=== PATIENT | female | born 1995 | race Hispanic/Latino ===

== ENCOUNTER 2018-10-13 21:57 | Emergency (ER) | payer OTHER, SELFPAY ==
[2018-10-14 01:13] LABS: Absolute Lymphocytes (CBC) 2.5 K/uL (0.7-4.9); Absolute Monocytes 0.7 K/uL (0.1-1.3); Absolute Neutrophil 6.6 K/uL (1.8-8.0); Basophils % 0.2 % (0-1.3); Eosinophils % 1.7 % (0-4.4); Hematocrit 44.3 % (36.0-45.0); MPV 8.4 fL (7.6-11.3); Monocytes % 6.7 % (3.3-12.3); RBC Red Blood Cell Count 5.26 M/uL (3.86-4.86)
[2018-10-14 01:26] LABS: ALT/SGPT 37 U/L (12-78); AST/SGOT 19 U/L (15-37); Albumin 3.8 g/dL (3.4-5.0); Alkaline Phosphatase 76 U/L (45-117); BUN Blood Urea Nitrogen 9 mg/dL (7-18); Bicarbonate 27 mmol/L (21-32); Bilirubin Direct < 0.1 mg/dL (0-0.2); Bilirubin Total 0.2 mg/dL (0.2-1.0); Glucose Level 111 mg/dL (74-106); Lipase 840 U/L (73-393); Potassium 3.5 mmol/L (3.5-5.1); Protein, Total 8.5 g/dL (6.4-8.2); Sodium Level 139 mmol/L (136-145)
[2018-10-14 01:34] LABS: Urine Blood NEGATIVE (NEG); Urine Glucose NEGATIVE (NEG); Urine Protein NEGATIVE (NEG); Urine Specific Gravity 1.025 (1.005-1.030)
--- NOTE | 2018-10-14 03:22 | ER ---
Nurse's Notes [facility] Name: Jennifer Erickson Age: 23 yrs Sex: Female : 1995 Arrival Date: 10/13/2018 Time: 21:59 Bed 19 Private MD: Diagnosis: Unspecified abdominal pain Presentation: 10/13 22:26 Presenting complaint: Patient states: i have history of gall stones for 5 months, now i mg2 have LUQ pain radiating to the back and RUQ. i have also nausea for 3 days now. Transition of care: patient was not received from another setting of care. Onset of symptoms was October 11, 2018. Risk Assessment: Do you want to hurt yourself or someone else? Patient reports no desire to harm self or others. Initial Sepsis Screen: Does the patient meet any 2 criteria? No. Patient's initial sepsis screen is negative. Does the patient have a suspected source of infection? No. Patient's initial sepsis screen is negative. Care prior to arrival: None. 22:26 Method Of Arrival: Ambulatory mg2 22:26 Acuity: BOO 3 mg2 TECHNICAL SUPPORT ASSISTANT: 22:28 LMP 08/2018 mg2 Historical: - Allergies: 22:29 No Known Allergies; mg2 - PMHx: 22:29 None; mg2 - PSHx: 22:29 ; mg2 - Immunization history:: Flu vaccine is not up to date. - Social history:: Smoking status: Patient uses tobacco products, 4 sticks a day, Patient/guardian denies using alcohol, street drugs, IV drugs. - Ebola Screening: : No symptoms or risks identified at this time. Screenin/14 00:45 Abuse screen: Denies threats or abuse. Nutritional screening: No deficits noted. jb4 Tuberculosis screening: No symptoms or risk factors identified. Fall Risk None identified. Assessment: 00:54 General: Appears in no apparent distress. comfortable, Behavior is calm, cooperative, jb4 appropriate for age. Pain: Complains of pain in epigastric area and left upper quadrant Pain does not radiate. Pain currently is 6 out of 10 on a pain scale. Quality of pain is described as crampy. Neuro: Level of Consciousness is awake, alert, obeys commands, Oriented to person, place, time, situation. Cardiovascular: Patient's skin is warm and dry. Respiratory: Airway is patent Respiratory effort is even, unlabored, Respiratory pattern is regular, symmetrical. GI: Bowel sounds present X 4 quads. Abd is soft X 4 quads Abd is non tender in umbilical area, suprapubic area, right upper quadrant, right lower quadrant and left lower quadrant Abdomen is tender to palpation in epigastric area and left upper quadrant Reports upper abdominal pain, nausea. : No signs and/or symptoms were reported regarding the genitourinary system. EENT: No signs and/or symptoms were reported regarding the EENT system. Derm: Skin is intact, Skin is pink, warm \T\ dry. Musculoskeletal: Circulation, motion, and sensation intact. 02:00 Reassessment: Patient appears in no apparent distress at this time. Patient and/or jb4 family updated on plan of care and expected duration. Pain level reassessed. Patient is alert, oriented x 3, equal unlabored respirations, skin warm/dry/pink. 03:00 Reassessment: Patient appears in no apparent distress at this time. Patient and/or jb4 family updated on plan of care and expected duration. Pain level reassessed. Patient is alert, oriented x 3, equal unlabored respirations, skin warm/dry/pink. 03:40 Reassessment: Patient appears in no apparent distress at this time. Patient and/or jb4 family updated on plan of care and expected duration. Pain level reassessed. Patient is alert, oriented x 3, equal unlabored respirations, skin warm/dry/pink. Vital Signs: 10/13 22:28 BP 126 / 86; Pulse 90; Resp 18; Temp 98.6; Pulse Ox 100% on R/A; Weight 108.86 kg; mg2 Height 5 ft. 4 in. (162.56 cm); Pain 11/07; 10/14 00:45 BP 109 / 71; Pulse 80; Resp 16; Pulse Ox 100% on R/A; jb4 02:00 BP 100 / 54; Pulse 69; Resp 16; Pulse Ox 99% on R/A; jb4 03:32 BP 122 / 62; Pulse 85; Resp 16; Pulse Ox 99% on R/A; jb4 10/13 22:28 Body Mass Index 41.20 (108.86 kg, 162.56 cm) mg2 ED Course: 10/13 21:59 Patient arrived in ED. ag3 22:28 Triage completed. mg2 22:30 Arm band placed on. mg2 23:05 Tera Singer NP is PHCP. pm1 23:05 Josue Hernandez MD is Attending Physician. pm1 23:10 Jude Ruelas, RN is Primary Nurse. jb4 10/14 00:45 Patient has correct armband on for positive identification. Bed in low position. Call jb4 light in reach. Side rails up X 1. Pulse ox on. NIBP on. 00:45 No provider procedures requiring assistance completed. Initial lab(s) drawn, by az, jb4 sent to lab. Inserted saline lock: 20 gauge in left forearm, using aseptic technique. Blood collected. 02:29 CT completed. Patient tolerated procedure well. Patient moved to CT via wheelchair. Patient moved back from CT. 02:46 CT Abd/Pelvis - W/Contrast: IV contrast only In Process Unspecified. EDMS 03:32 IV discontinued, intact, bleeding controlled. jb4 Administered Medications: 03:39 Drug: GI Cocktail without - (Maalox Suspension 30 ml, Lidocaine Liquid 2 % 15 jb4 ml) Route: PO; 03:39 Follow up: Response: No adverse reaction jb4 Outcome: 03:21 Discharge ordered by . pm1 03:41 Discharged to home ambulatory. jb4 03:41 Condition: stable 03:41 Discharge instructions given to patient, Instructed on discharge instructions, follow up and referral plans. medication usage, Demonstrated understanding of instructions, follow-up care, medications, Prescriptions given X 1. 03:41 Patient left the ED. jb4 Signatures: Dispatcher [employer] EDOR Izaiah Slater Tera Singer, SWETA PROCUREMENT REPRESENTATIVE pm1 Jude Ruelas, RN RN jb4 Benitez Oro RN RN [facility] Jacy Ramos ag3
--- NOTE | 2018-10-14 03:22 | EDPHYS ---
Physician Documentation [facility] Name: Jennifer Erickson Age: 23 yrs Sex: Female : 1995 Arrival Date: 10/13/2018 Time: 21:59 Bed 19 Private MD: ED Physician Josue Hernandez HPI: 10/14 00:00 This 23 yrs old Female presents to ER via Ambulatory with complaints of pm1 Abdominal Pain. 00:00 The patient presents with abdominal pain in the upper abdomen. Onset: The pm1 symptoms/episode began/occurred 3 day(s) ago. The symptoms radiate to back. Associated signs and symptoms: Pertinent positives: nausea, Pertinent negatives: chest pain, constipation, diarrhea, dysuria, fever, shortness of breath, vomiting. The symptoms are described as achy. Modifying factors: The symptoms are alleviated by nothing, the symptoms are aggravated by food. Severity of pain: in the emergency department the pain is actually worse. The patient has not experienced similar symptoms in the past. The patient has not recently seen a physician. FITNESS AND WELLNESS COORDINATOR: 10/13 22:28 LMP 08/2018 mg2 Historical: - Allergies: 22:29 No Known Allergies; mg2 - PMHx: 22:29 None; mg2 - PSHx: 22:29 ; mg2 - Immunization history:: Flu vaccine is not up to date. - Social history:: Smoking status: Patient uses tobacco products, 4 sticks a day, Patient/guardian denies using alcohol, street drugs, IV drugs. - Ebola Screening: : No symptoms or risks identified at this time. ROS: 10/14 00:00 Constitutional: Negative for fever, chills, and weight loss, Eyes: Negative for injury, pm1 pain, redness, and discharge, ENT: Negative for injury, pain, and discharge, Neck: Negative for injury, pain, and swelling, Cardiovascular: Negative for chest pain, palpitations, and edema, Respiratory: Negative for shortness of breath, cough, wheezing, and pleuritic chest pain. : Negative for injury, bleeding, discharge, and swelling, MS/Extremity: Negative for injury and deformity, Skin: Negative for injury, rash, and discoloration, Neuro: Negative for headache, weakness, numbness, tingling, and seizure. Back: Negative for injury and pain. Abdomen/GI: Positive for abdominal pain, nausea, Negative for vomiting, diarrhea, constipation. Exam: 00:00 Constitutional: This is a well developed, well nourished patient who is awake, alert, pm1 and in no acute distress. Head/Face: Normocephalic, atraumatic. Eyes: Pupils equal round and reactive to light, extra-ocular motions intact. Lids and lashes normal. Conjunctiva and sclera are non-icteric and not injected. Cornea within normal limits. Periorbital areas with no swelling, redness, or edema. ENT: Nares patent. No nasal discharge, no septal abnormalities noted. Tympanic membranes are normal and external auditory canals are clear. Oropharynx with no redness, swelling, or masses, exudates, or evidence of obstruction, uvula midline. Mucous membranes moist. Neck: Trachea midline, no thyromegaly or masses palpated, and no cervical lymphadenopathy. Supple, full range of motion without nuchal rigidity, or vertebral point tenderness. No Meningismus. Chest/axilla: Normal chest wall appearance and motion. Nontender with no deformity. No lesions are appreciated. Cardiovascular: Regular rate and rhythm with a normal S1 and S2. No gallops, murmurs, or rubs. Normal PMI, no JVD. No pulse deficits. Respiratory: Lungs have equal breath sounds bilaterally, clear to auscultation and percussion. No rales, rhonchi or wheezes noted. No increased work of breathing, no retractions or nasal flaring. 00:00 Back: No spinal tenderness. No costovertebral tenderness. Full range of motion. Skin: Warm, dry with normal turgor. Normal color with no rashes, no lesions, and no evidence of cellulitis. MS/ Extremity: Pulses equal, no cyanosis. Neurovascular intact. Full, normal range of motion. 00:00 Abdomen/GI: Inspection: obese Bowel sounds: normal, Palpation: abdomen is soft and non-tender, in all quadrants, mass, is not appreciated, rebound tenderness, is not appreciated. 00:00 Neuro: Orientation: is normal, Motor: is normal, moves all fours, Gait: is steady, at a normal pace, without difficulty. Vital Signs: 10/13 22:28 BP 126 / 86; Pulse 90; Resp 18; Temp 98.6; Pulse Ox 100% on R/A; Weight 108.86 kg; mg2 Height 5 ft. 4 in. (162.56 cm); Pain 11/07; 10/14 00:45 BP 109 / 71; Pulse 80; Resp 16; Pulse Ox 100% on R/A; jb4 02:00 BP 100 / 54; Pulse 69; Resp 16; Pulse Ox 99% on R/A; jb4 03:32 BP 122 / 62; Pulse 85; Resp 16; Pulse Ox 99% on R/A; jb4 10/13 22:28 Body Mass Index 41.20 (108.86 kg, 162.56 cm) mg2 MDM: 10/13 23:16 Patient medically screened. [facility] 10/14 03:14 Data reviewed: vital signs. Data interpreted: Pulse oximetry: on room air is 99 %. pm1 Interpretation: normal. Counseling: I had a detailed discussion with the patient and/or guardian regarding: the historical points, exam findings, and any diagnostic results supporting the discharge/admit diagnosis, lab results, radiology results, the need for outpatient follow up, to return to the emergency department if symptoms worsen or persist or if there are any questions or concerns that arise at home. 10/13 23:17 Order name: Basic Metabolic Panel pm1 10/13 23:17 Order name: CBC with Diff pm1 10/13 23:17 Order name: Creatinine for Radiology; Complete Time: 01:24 pm1 10/13 23:17 Order name: Hepatic Function; Complete Time: 01:42 pm1 10/13 23:17 Order name: Lipase; Complete Time: 01:42 pm1 10/13 23:17 Order name: Basic Metabolic Panel; Complete Time: 01:42 EDMS 10/13 23:17 Order name: IV Saline Lock; Complete Time: 00:52 pm10/13 23:17 Order name: Labs collected and sent; Complete Time: 00:52 pm1 10/13 23:17 Order name: CBC with Automated Diff; Complete Time: 01:21 EDMS 10/14 00:55 Order name: Urine Dipstick--Ancillary (enter results) ar5 10/14 00:55 Order name: Urine --Ancillary (enter results); Complete Time: 01:42 ar5 10/14 00:56 Order name: Urine Dipstick-Ancillary; Complete Time: 01:42 EDMS 10/14 01:44 Order name: CT Abd/Pelvis - W/Contrast: IV contrast only pm1 10/13 23:17 Order name: Urine Dipstick-Ancillary (obtain specimen); Complete Time: 00:52 pm1 10/13 23:17 Order name: Urine Test (obtain specimen); Complete Time: 00:52 pm1 Administered Medications: 03:39 Drug: GI Cocktail without - (Maalox Suspension 30 ml, Lidocaine Liquid 2 % 15 jb4 ml) Route: PO; 03:39 Follow up: Response: No adverse reaction jb4 Disposition: 07:28 Co-signature as Attending Physician, Josue Hernandez MD I agree with the assessment and [facility] plan of care. Disposition: 10/14/18 03:21 Discharged to Home. Impression: Unspecified abdominal pain. - Condition is Stable. - Discharge Instructions: Abdominal Pain, Adult. - Prescriptions for Bentyl 20 mg Oral Tablet - take 1 tablet by ORAL route every 6 hours As needed; 20 tablet. Zofran 4 mg Oral Tablet - take 1 tablet by ORAL route every 12 hours As needed; 20 tablet. - Medication Reconciliation Form, Thank You Letter, Antibiotic Education, Prescription Opioid Use form. - Follow up: Emergency Department; When: As needed; Reason: Worsening of condition. Follow up: Private Physician; When: 2 - 3 days; Reason: Recheck today's complaints, Continuance of care, Re-evaluation by your physician. - Problem is new. - Symptoms have improved. Signatures: Dispatcher [employer] EDND Josue Hernandez MD MD cha Marinas, Patrick, SOLAR SALES REPRESENTATIVE SOLAR SALES REPRESENTATIVE pm1 Jude Ruelas RN RN jb4 Benitez Oro RN RN mg2 Corrections: (The following items were deleted from the chart) 03:41 03:21 10/14/2018 03:21 Discharged to Home. Impression: Unspecified abdominal pain. jb4 Condition is Stable. Forms are Medication Reconciliation Form, Thank You Letter, Antibiotic Education, Prescription Opioid Use. Follow up: Emergency Department; When: As needed; Reason: Worsening of condition. Follow up: Private Physician; When: 2 - 3 days; Reason: Recheck today's complaints, Continuance of care, Re-evaluation by your physician. Problem is new. Symptoms have improved. pm1
[2018-10-14] MEDS ORDERED: MAGNE/ALUM HYDROXD 30 ML UCUP ONE (03:41)
[2018-10-14] MEDS ORDERED: LIDOCAINE VISCOUS 2% SOLN 15 ML UDC ONE (03:42)
--- NOTE | 2018-10-14 20:09 | RAD REPORT ---
EXAM DESCRIPTION: CT - Abdomen Pelvis W Contrast - 10/14/2018 4:41 am CLINICAL HISTORY: The patient is 23 years old and is Female; ABD PAIN. COMPARISON: No relevant prior studies available. TECHNIQUE: Axial computed tomography images of the abdomen and pelvis with intravenous contrast. Sag ittal and coronal reformatted images were created and reviewed. This CT exam was performed using one or more of the following dose reduction techniques: Automated exposure control, adjustment of the mA and/or kV according to patient size, and/or use of iterative reconstruction technique. FINDINGS: Lung bases: Unremarkable. No mass. No consolidation. ABDOMEN: Liver: There is a diffuse decrease in hepatic parenchymal density, consistent with fatty infiltration . Gallbladder and bile ducts:The gallbladder is contracted. Pancreas: No ductal dilation. No mass. Spleen: Unremarkable. Adrenals: Unremarkable. No mass. Kidneys and ureters: Unremarkable. No solid mass. No significant fluid collection. Stomach and bowel: Unremarkable. No obstruction. No mucosal thickening. PELVIS: Appendix: The appendix is normal in caliber without surrounding inflammation. Bladder: Unremarkable. No mass. Reproductive:Suggestion of a small 2 cm right ovarian cyst is present. No follow-up imaging is recomm ended. The uterus and left ovary is unremarkable. ABDOMEN and PELVIS: Intraperitoneal space: Unremarkable. No free air. No significant fluid collection. Bones/joints: No acute fracture. Soft tissues: The soft tissues are normal. Vasculature: Unremarkable. No abdominal aortic aneurysm. Lymph nodes: Unremarkable. No enlarged lymph nodes. IMPRESSION: No acute findings on this contrasted CT of the abdomen and pelvis to explain the patient 's symptoms. Electronically signed by Iwona Gonzales MD 10/14/2018 2:49 AM AEROSPACE ENGINEER Due to temporary technical issues with the PACS/Fluency reporting system, reports are being signed by the in house radiologist as a courtesy to ensure prompt reporting. The interpreting radiologist is f ully responsible for the content of the report.
== END 2018-10-14 03:41 | disposition home or self-care (01) ==
LOC: ER 21:57
DX: R10.10 Upper abdominal pain, unspecified (principal); F17.210 Nicotine dependence, cigarettes, uncomplicated
CPT/HCPCS: 36415; 74177; 80048; 80076; 81003; 81025; 83690; 85025; 99284; Q9967